=== PATIENT | male | born 1965 | race Caucasian/White ===

== ENCOUNTER 2018-10-02 20:36 | Emergency (ER) | payer OTHER ==
[2018-10-02] MEDS ORDERED: Adacel (T-DAP) 0.5 ML SYRINGE ONE (21:10)
--- NOTE | 2018-10-02 21:14 | RAD ---
RIGHT THUMB THREE VIEWS: HISTORY: Injury. FINDINGS: Obliquely oriented, displaced fracture involving the proximal phalanx of the thumb. Mild comminution . POS: [facility]
== END 2018-10-02 21:42 | disposition home or self-care (01) ==
LOC: BURERS 20:36
DX: S62.511A Displaced fracture of proximal phalanx of right thumb, initial encounter for closed fracture (principal); W22.8XXA Striking against or struck by other objects, initial encounter
CPT/HCPCS: 29125; 90471; 90715; 96372; J2270